=== PATIENT | male | born 1995 | race Two or more races ===

== ENCOUNTER 2023-10-26 22:23 | Emergency (ER) | payer SELFPAY ==
[~2023-10-26] VITALS: Ht 180.3 cm; Wt 116.2 kg
[2023-10-27] MEDS ORDERED: CLIN1CAP70 PO (00:04)
[2023-10-27] MEDS ORDERED: HYDR-4902 PO (00:04)
[2023-10-27] MEDS: IBUPROFEN 600 MG TAB PO ONE (01:12)
[2023-10-27] MEDS: CLINDAMYCIN HCL 150 MG CAP PO ONE (01:12)
[2023-10-27 03:20] VITALS: BP 132/87; PULSE 89; RESP 20; TEMP 98.7; O2SAT 97
== END 2023-10-27 03:20 | disposition home or self-care (01) ==
LOC: ER 22:23
DX: K04.7 Periapical abscess without sinus (principal); K02.9 Dental caries, unspecified; L03.211 Cellulitis of face